=== PATIENT | male | born 1960 | race Caucasian/White ===

== ENCOUNTER → 2017-04-02 | Outpatient (CLI) | payer OTHER ==
--- NOTE | 2017-04-02 10:10 | Diagnostic Imaging Report ---
Right Wrist MRI without contrast. History: Wrist pain. Swelling. Mass. Comparison: None Technique: Coronal PD FS and PD. Axial PD FS. Sagital PD FS. Findings: There is a moderate amount of fluid/synovitis surrounding the extensor tendons to the third and fourth fingers at the dorsal aspect of the wrist at the level of the distal carpal row/proximal metacarpals. This is best seen on series 8 image 23 through 25 and series 2 image 17 through 23. There is thickening of the tendons with midsubstance degeneration. No tendon tear or retraction is seen. There is degeneration and fraying of the scapholunate ligament. The lunotriquetral ligament is intact. There is degeneration and fraying of the triangular fibrocartilage complex. There is slight negative ulnar variance. Mild scattered degenerative changes are seen. No acute fracture, dislocation or evidence of avascular necrosis. The flexor tendons are intact. Signal intensity within the median nerve is normal. No ganglion cyst. There is normal alignment of the wrist. There is mild dorsal capsular scarring and synovitis. Impression: Tendinosis with moderate fluid/synovitis surrounding the extensor tendons to the third and fourth fingers without tendon tear or retraction. Signed by: Dr. Sergio Crane M.D. on 04/02/2017 10:06 AM
== END ==
LOC: MRI 07:26
PROVIDERS: ATTEND Plastic Surgery
DX: R22.31 Localized swelling, mass and lump, right upper limb (principal)